=== PATIENT | male | born 1980 | race Caucasian/White ===

== ENCOUNTER 2018-03-11 13:25 | Emergency (ER) | payer OTHER ==
[2018-03-11] MEDS ORDERED: NITROGLYCERIN 0.4 MG BTL SL ONE (14:21)
[2018-03-11] MEDS ORDERED: NS 1,000 ML IV ONE (14:21)
--- NOTE | 2018-03-11 14:21 | EDPHY ---
H & P Time Seen by Provider: 03/11/18 14:17 HPI/ROS: CHIEF COMPLAINT: Food in the throat HISTORY OF PRESENT ILLNESS: Eating steak at 12:30 p.m., can't swallow it. Feels it is in his esophagus just below his sternal notch. Can swallow water or saliva. Nausea but no chest pain, no coughing, no shortness of breath. Symptoms moderate. REVIEW OF SYSTEMS: Eye: no change in vision ENT: no sore throat Cardiac: no chest pain or syncope Pulmonary: no cough or SOB Abdomen: HPI Musculoskeletal: no back pain Skin: no rash Neuro: no headache Constitutional: no fever : no urinary symptoms A comprehensive 10 point review of systems is otherwise negative aside from elements mentioned in the history of present illness. PAST MEDICAL HISTORY: Negative, no previous esophageal foreign body Social history: Lives in [place] General Appearance: Alert and conversant, cooperative. Eyes: No scleral icterus. ENT, Mouth: Normal pharynx. No angioedema. Respiratory: Normal respiratory effort, breath sounds equal, lungs are clear to auscultation. No wheezing. Cardiovascular: Regular rate and rhythm. Gastrointestinal: Abdomen is soft and non tender. Neurological: Alert, face symmetric, normal motor and sensory in extremities. Skin: Warm and dry, no rashes. Musculoskeletal: No peripheral edema. Psychiatric: Not agitated. Emergency Department course/MDM: Glucagon 1 mg, nitroglycerin sublingual x1. 1455: Feels better, thinks he swallowed it, is able to drink water. Warned GI follow-up in [place] is mandatory. Smoking Status: Former smoker Constitutional: Initial Vital Signs Temperature (C) 36.7 C 03/11/18 13:32 Heart Rate 72 03/11/18 13:32 Respiratory Rate 18 03/11/18 13:32 Blood Pressure 141/93 H 03/11/18 13:32 O2 Sat (%) 94 03/11/18 13:32 O2 Delivery Mode Room Air Allergies/Adverse Reactions: No Known Allergies Allergy (Unverified 03/11/18 13:32) Home Medications: Medication Instructions Recorded NK [No Known Home Meds] 03/11/18 Medical Decision Making - Data Points Medications Given: Discontinued Medications Glucagon (Glucagon) 1 mg IVP EDNOW ONE Stop: 03/11/18 14:23 Last Admin: 03/11/18 14:35 Dose: 1 mg Sodium Chloride (Ns) 1,000 mls @ 0 mls/hr IV EDNOW ONE; Wide Open PRN Reason: Protocol Stop: 03/11/18 14:22 Last Admin: 03/11/18 14:35 Dose: 1,000 mls Nitroglycerin (Nitrostat) 0.4 mg SL EDNOW ONE Stop: 03/11/18 14:22 Last Admin: 03/11/18 14:34 Dose: 0.4 mg Departure - Departure Disposition: Home, Routine, Self-Care Clinical Impression: Esophageal foreign body Qualifiers: Encounter type: initial encounter Qualified Code(s): T18.108A - Unspecified foreign body in esophagus causing other injury, initial encounter Condition: Good Instructions: Esophageal Foreign Body (ED) Additional Instructions: Please contact your primary care doctor for gastroenterology follow-up within the next week. Well chewed food or soft food until after your follow-up gastroenterology appointment. You may need endoscopy to evaluate your esophagus after this event. Referrals: [facility] [Other] - As per Instructions
[2018-03-11] MEDS ORDERED: GLUCAGON HCL 1 MG VIAL IVP ONE (14:22)
[2018-03-11 15:06] VITALS: BP 140/89
== END 2018-03-11 15:05 | disposition home or self-care (01) ==
DX: T18.128A Food in esophagus causing other injury, initial encounter (principal)
CPT/HCPCS: 96374; J1610